=== PATIENT | female | born 1975 | race Caucasian/White ===

== ENCOUNTER 2016-10-11 10:00 | Day surgery (SDC) | payer OTHER ==
[~2016-10-11] VITALS: Ht 162.6 cm; Wt 121.6 kg
[~2016-10-11 10:00] MED LIST: HYDROCHLOROTHIA25 MG PO; METFORMIN HCL1000 M1 PO; SIMVASTATIN20 MG PO
--- NOTE | 2016-10-11 12:20 | NUR ---
10/11/16 1220 Klarissa Marc 1216-PATIENT ARRIVED TO PACU ON 8L MASK 100% ORAL AIRWAY IN PLACE. NONAROUSABLE. JULIA PAD TO VAGINA CDI. SR. RN ASSISTING TO MAINTAIN OPEN AIRWAY 1218-PATIENT MAINTAINING OWN AIRWAY 8L MASK O2 SAT 100%
[2016-10-11] MEDS ORDERED: MOTRIN IB200 MG PO (13:12)
[2016-10-11] MEDS ORDERED: NORCO 5-325 TA1 EACH PO (13:13)
--- NOTE | 2016-10-11 13:54 | NUR ---
PT TOLERATED SOUP AND APPLE SAUCE.
--- NOTE | 2016-10-11 14:09 | NUR ---
PT UP TO THE BATHROOM WITH PAUL ASST. TOLERATED WELL. VOID NOTED BUT MISSED THE HAT THAT WAS PLACED IN THE TOILET. NO DRAINAGE NOTED ON JULIA PAD. PT BACK TO BED AND IV DC'D. PT WAITING FOR TO RETURN.
--- NOTE | 2016-10-17 20:46 | OR ---
[facility] [address] [place], [place] [address] Signed DATE OF SERVICE: 10/11/2016 SURGEON: Micheline Yu MD PREOPERATIVE DIAGNOSES: Menorrhagia and endometrial polyp. POSTOPERATIVE DIAGNOSES: Menorrhagia and endometrial polyp, pending pathology. PROCEDURE: Hysteroscopy, D and C, resection of polyp. ANESTHESIA: General LMA. ESTIMATED BLOOD LOSS: Minimal. DRAINS: None. INDICATIONS AND FINDINGS: The patient is a 41-year-old female, 3, para 3, status post prior tubal ligation. She has been having worsening periods over the last 6 months. Her periods have been very heavy where she will need to change her protection every 1-2 hours for 6-7 days and in the last 6 months her periods have been lasting 12-18 days and she was needed to change her protection every 30-60 minutes. She has also been having significant cramping. She has been anemic on laboratory evaluation. She has had an EMB, which was anovulatory. Ultrasound revealed an endometrial polyp. She is now being admitted for evaluation. Exam under anesthesia revealed an apparently normal sized uterus. The patient is morbidly obese. The cavity sounded to 11 cm. The cavity appeared primarily atrophic except for a single large polyp. PROCEDURE: The patient was prepped and draped in the dorsal lithotomy position. The swan neck speculum was required in the posterior cul-de-sac secondary to her weight. The anterior cervix was visualized and grasped with a single-tooth tenaculum. The cavity was then sounded to 11 cm. The endocervical canal was then dilated to a #8 dilator. The MyoSure device was then placed. The cavity was evaluated and the polyp was seen. Following this, the MyoSure was removed and polyp forceps were introduced with removal of a small polyp. D and C was then done using a small curette, but no tissue was really found. Subsequent to this, the MyoSure device was reintroduced and the polyp was still seen. The MyoSure Lite was then used and the polyp excised completely. Evaluation of the remaining cavity showed no abnormalities. The procedure was then terminated. The instruments were removed and the tenaculum removed. There was no evidence of bleeding from the tenaculum site. Electronically Signed By: MICHELINE YU MD 10/17/16 2046 PATIENT NAME: AJITH ARGUETA OPERATIVE REPORT DATE OF : 71 PHYSICIAN: MICHELINE YU MD REPORT #: [id number] REPORT IS CONFIDENTIAL AND NOT TO BE RELEASED WITHOUT AUTHORIZATION [facility] [address] [place] [id number] Signed The weighted speculum was then removed. The patient was taken to the recovery room in good condition. Micheline Yu MD PJW/Evans /[id number] cc: Rosendo Rdz NP Electronically Signed By: MICHELINE YU MD 10/17/16 2046 PATIENT NAME: AJITH ARGUETA OPERATIVE REPORT DATE OF : 71 PHYSICIAN: MICHELINE YU MD REPORT #: [id number] REPORT IS CONFIDENTIAL AND NOT TO BE RELEASED WITHOUT AUTHORIZATION
== END 2016-10-11 14:30 | disposition home or self-care (01) ==
LOC: DS 10:00
PROVIDERS: Obstetrics & Gynecology
PROC: 0UDB8ZX Extraction of Endometrium, Via Natural or Artificial Opening Endoscopic, Diagnostic (ICD-10-PCS; principal; 2016-10-11 12:45)
DX: N84.0 Polyp of corpus uteri (principal); D50.0 Iron deficiency anemia secondary to blood loss (chronic); I10 Essential (primary) hypertension; E11.9 Type 2 diabetes mellitus without complications; E78.00 Pure hypercholesterolemia, unspecified; E66.01 Morbid (severe) obesity due to excess calories; Z98.890 Other specified postprocedural states; Z88.2 Allergy status to sulfonamides; Z68.41 Body mass index [BMI] 40.0-44.9, adult
CPT/HCPCS: 00952; J1100; J1885; J2250; J2405; J2704; J2765; J3010; J7120

== ENCOUNTER 2018-04-03 05:50 | Day surgery (SDC) | payer OTHER ==
[~2018-04-03] VITALS: Ht 162.6 cm; Wt 121.6 kg
[~2018-04-03 05:50] MED LIST changes: +GABAPENTIN100 MG PO; +IRON325 M1 PO; +MAGNESIUM100 MG PO; +MOTRIN IB200 MG PO; +NORCO 5-325 TA1 EACH PO; +VITAMIN B COMP1 EACH PO; +ZESTRIL40 MG PO; +ZINC CHELATED50 MG PO
[2018-04-03] MEDS ORDERED: ADVIL200 M1 PO (06:07)
[2018-04-03] MEDS ORDERED: VITAMIN C500 M1 PO (06:08)
[2018-04-03] MEDS ORDERED: PERCOCET 5-3251 EACH PO (14:44)
[2018-04-03] MEDS ORDERED: MOTRIN IB200 MG PO (14:44)
[2018-04-03] MEDS ORDERED: ZOFRAN8 MG PO (14:45)
[2018-04-17] MEDS ORDERED: VITAMIN D2000 UNIT PO (14:00)
--- NOTE | 2018-05-08 09:25 | OR ---
[facility] [address] [place], [place] [address] Signed DATE OF OPERATION: 04/03/2018 SURGEON: Micheline Yu MD GASTROENTEROLOGY PHYSICIAN: Shantal Shelton DO PREOPERATIVE DIAGNOSES: Menorrhagia, dysmenorrhea, morbid obesity. POSTOPERATIVE DIAGNOSES: Menorrhagia, dysmenorrhea, morbid obesity. PROCEDURES: Total laparoscopic hysterectomy, bilateral salpingectomy, and cystoscopy. ANESTHESIA: General ET. ESTIMATED BLOOD LOSS: 150 mL. DRAINS: Lemus catheter. INDICATIONS AND FINDINGS: The patient is a 42-year-old female, 3, para 3 status post prior tubal ligation, who has had recurrent menorrhagia and dysmenorrhea, now desires definitive treatment. She underwent hysteroscopy with resection of polyps approximately a vvhn-zof-n-half ago and did well for some time, but then had recurrent abnormal bleeding. She now desires definitive treatment. The patient is also morbidly obese and has undergone three prior sections as well as a tubal ligation. At the time of surgery, exam under anesthesia revealed a top-normal size uterus, but no adnexal masses. At the time of laparoscopy, the uterus appeared to be top-normal size and the ovaries were normal. The tubes had evidence of prior tubal ligation. There was not too much scarring in the pelvis from her prior surgeries. DESCRIPTION OF PROCEDURE: The patient was prepped and draped in the dorsal lithotomy position. The [place]-Neck speculum was required to visualize the cervix. The anterior lip of the cervix was then Electronically Signed By: MICHELINE YU MD 05/08/18 0925 PATIENT NAME: AJITH ARGUETA OPERATIVE REPORT DATE OF : 71 REPORT #: [id number] PHYSICIAN: MICHELINE YU MD PCP: BILLY SANCHEZ MD REPORT IS CONFIDENTIAL AND NOT TO BE RELEASED WITHOUT AUTHORIZATION [facility] [address] [place], [place] [address] Signed visualized and grasped with a single-tooth tenaculum. The uterus was sounded to 9 cm. The endocervical canal was then slightly dilated and a VCare cannula was placed and the balloon inflated at the fundus. The tenaculum and speculum removed. The cup was fitted over the cervix with some difficulty and a locking cap was fitted into place as well. Attention was then directed above. The infraumbilical area was injected with 0.5% Marcaine plain and an incision made with a knife. Each layer was then serially elevated and incised until the fascia was opened and identified. Stay sutures of 0 Vicryl were placed. Following this, the peritoneum was opened bluntly. The Ovidio cannula was then placed and the balloon inflated. It was tied into place and the scope was placed confirming proper positioning. CO2 was then introduced to inflate the abdomen. A secondary port was placed slightly below the umbilicus on the patient's left side. An attempt was made to transilluminate the abdominal wall, but this was unsuccessful. It was felt that this was fairly far laterally and it should be safe. This area was injected with the Marcaine, incision made with a knife and a 5 mm port placed under direct vision. A 3rd port was placed in the same area on the right side. Again, after injecting with the Marcaine, incision made with a knife and the Veress needle was placed followed by the expanding port. The pelvis was evaluated and there was no severe scarring within the pelvis and it was felt that the planned procedure was appropriate. The LigaSure [place] device was then used to remove the patient's left tube and this was brought out through the expanded port. Subsequently, the round ligament and utero-ovarian ligament were serially coagulated and divided. The anterior leaf of the peritoneum was then incised allowing for a partial bladder flap. An attempt was made to take down the peritoneum posteriorly, but this was difficult given her size. The uterine vessels were then skeletonized and coagulated multiple times and then divided. There was a fair amount of bleeding at this time as there were quite a few vessels in this area. Further dissection was done anteriorly. Then, attention was directed to the patient's right side. Again, the tube was serially coagulated and excised and brought out through the port. The utero-ovarian ligament and round ligament were then serially coagulated and divided. The anterior leaf of the peritoneum was then incised allowing for completion of the bladder flap. Dissection was done anteriorly allowing the bladder to come down off completely. The posterior peritoneum was taken down. The uterine vessels were skeletonized and coagulated multiple times and then divided. An attempt was made to do further dissection posteriorly, but this was quite difficult. Attention was redirected to the patient's left side and more dissection was done in the area of the uterine vessel areas, but it was quite difficult to further dissect posteriorly. The cup could be seen anteriorly. Another puncture site was made above the umbilicus on the right side to aid in further visualization. This area was visualized, injected with the Marcaine, incision made with a knife and a 5 mm port was placed under direct vision. The abdomen was copiously irrigated and inspected and it was felt at that point that removal of the specimen was appropriate. The Ovidio cannula was replaced with a bariatric cannula given the patient's size as well. The Sonicision device was used to remove the specimen. This was started anteriorly given the difficulty visualizing the Electronically Signed By: MICHELINE YU MD 05/08/18 0925 PATIENT NAME: AJITH ARGUETA OPERATIVE REPORT DATE OF : 71 REPORT #: [id number] PHYSICIAN: MICHELINE YU MD PCP: BILLY SANCHEZ MD REPORT IS CONFIDENTIAL AND NOT TO BE RELEASED WITHOUT AUTHORIZATION [facility] [address] [place], [place] [address] Signed cup posteriorly. This was brought from the right anterior around the right side and over the right uterosacral ligament. Following this, it was started again anteriorly and wrapped around the left side and then across the posterior aspect of the cervix as well. Following this, the specimen was and it could be removed vaginally. Following this, a lap tape was placed in a glove and this was placed in the vagina to allow for the pneumoperitoneum to reaccumulate. Attention was redirected above and the abdomen was copiously irrigated and inspected and the cuff actually appeared to be hemostatic. Preparations were then made for closure with the Endo Stitch. This was started at the patient's right uterosacral ligament, brought through the vaginal mucosa posteriorly and then through the vaginal mucosa and the cuff anteriorly. This was run from the patient's right to the left and then back to the center. The abdomen was again irrigated and inspected and the pressure turned down and there was no evidence of any ongoing bleeding. Evicel was dripped over the cuff and the pelvic sidewalls to aid further in hemostasis. Following this, preparations were made for closure. The instruments were removed from the abdomen after allowing as much CO2 as possible to escape. There was a fair amount of irrigation fluid that also escaped during this time. The fascial incision of the umbilicus was reidentified. At that point, there was also noted to be a fair amount of bleeding in the muscle area. Because of this, the umbilical incision was extended more laterally on each side, allowing for evaluation of the muscle. There was some bleeding on the patient's right side in the muscle layer, but there was also some bleeding near the patient's left side near the fascia and [id number] sutures of 0 Vicryl placed on each area with good hemostasis noted. Following this, little Louie powder was sprinkled in this area to aid in hemostasis. The fascia was then closed with a running suture of 0 Vicryl. The stay sutures were tied across as well. Deep sutures were required given the patient's depth of subcu. These were done with interrupted sutures of the 2-0 Vicryl. The skin incisions were closed with subcuticular sutures of 3-0 Vicryl Rapide. Following this, attention was directed below and the vaginal packing was removed. The Lemus catheter was removed and the cystoscope placed. The patient had received IV fluorescein. The bladder was evaluated. There was no evidence of any injury. Both of the ureteral orifices were identified and clear urine was seen to freely egress from both of these. Following this, the bladder was drained and the cystoscope removed and the Lemus catheter replaced. All sponge and needle counts were correct. She tolerated the procedure well and was taken to the recovery room in good condition. MD MICHAEL Wilson/VICENTEL Electronically Signed By: MICHELINE YU MD 05/08/18 0925 PATIENT NAME: AJITH ARGUETA OPERATIVE REPORT DATE OF : 71 REPORT #: [id number] PHYSICIAN: MICHELINE YU MD PCP: BILLY SANCHEZ MD REPORT IS CONFIDENTIAL AND NOT TO BE RELEASED WITHOUT AUTHORIZATION [address] [place] [address] Signed /[id number] cc: Shantal Shelton DO Copies: SHANTAL SHELTON DO ~ Electronically Signed By: MICHELINE YU MD 05/08/18 0925 PATIENT NAME: AJITH ARGUETA OPERATIVE REPORT DATE OF : 71 REPORT #: [id number] PHYSICIAN: MICHELINE YU MD PCP: BILLY SANCHEZ MD REPORT IS CONFIDENTIAL AND NOT TO BE RELEASED WITHOUT AUTHORIZATION
[2018-05-08] MEDS ORDERED: PRAVACHOL40 MG PO (13:32)
== END 2018-04-04 11:20 | disposition home or self-care (01) ==
LOC: DS 05:50 → MS 17:45 → DS 17:45 → MS 17:46 → DS 04-04 11:20 → MS 04-04 11:20
PROVIDERS: Obstetrics & Gynecology
PROC: 0UT94ZZ Resection of Uterus, Percutaneous Endoscopic Approach (ICD-10-PCS; principal; 2018-04-03 06:45)
PROC: 0UT74ZZ Resection of Bilateral Fallopian Tubes, Percutaneous Endoscopic Approach (ICD-10-PCS; 2018-04-03 06:45)
DX: N92.0 Excessive and frequent menstruation with regular cycle (principal); N94.5 Secondary dysmenorrhea; E66.01 Morbid (severe) obesity due to excess calories; D25.1 Intramural leiomyoma of uterus; N72 Inflammatory disease of cervix uteri; N83.8 Other noninflammatory disorders of ovary, fallopian tube and broad ligament; D50.0 Iron deficiency anemia secondary to blood loss (chronic); I10 Essential (primary) hypertension; E11.9 Type 2 diabetes mellitus without complications; Z88.5 Allergy status to narcotic agent; Z88.2 Allergy status to sulfonamides; Z68.41 Body mass index [BMI] 40.0-44.9, adult; E78.00 Pure hypercholesterolemia, unspecified; Z79.84 Long term (current) use of oral hypoglycemic drugs; Z79.899 Other long term (current) drug therapy
CPT/HCPCS: 00840; J0330; J0694; J1100; J1644; J1815; J1885; J2250; J2270; J2405; J2704; J2765; J3010; J7120

== ENCOUNTER 2018-04-24 10:57 | Day surgery (SDC) | payer OTHER ==
[~2018-04-24] VITALS: Ht 162.6 cm; Wt 120.6 kg
[~2018-04-24 10:57] MED LIST changes: +ADVIL200 M1 PO; +PERCOCET 5-3251 EACH PO; +VITAMIN C500 M1 PO; +VITAMIN D2000 UNIT PO; +ZOFRAN8 MG PO
[2018-04-24] MEDS ORDERED: PRAVACHOL40 MG PO (11:18)
--- NOTE | 2018-04-24 12:31 | NUR ---
04/24/18 Corey1 Klarissa Marc 1222-PATIENT ARRIVED TO PACU ON 3L NC AWAKE DENIES PAIN OR NAUSEA. PLACED ON 2L NC RR EVEN. LAYING LEFT LATERAL. DRESSING TO BACK CDI. GLUCOSE CHECKED 126
[2018-05-08] MEDS ORDERED: PRAVACHOL40 MG PO (13:32)
== END 2018-04-24 13:05 | disposition home or self-care (01) ==
LOC: OPS 10:57 → DS 12:00 → OPS 12:00
PROVIDERS: Specialist
PROC: 07JT3ZZ Inspection of Bone Marrow, Percutaneous Approach (ICD-10-PCS; principal; 2018-04-24 12:00)
DX: D47.2 Monoclonal gammopathy (principal); G62.9 Polyneuropathy, unspecified; D50.9 Iron deficiency anemia, unspecified; D47.3 Essential (hemorrhagic) thrombocythemia; E11.9 Type 2 diabetes mellitus without complications; I10 Essential (primary) hypertension; Z79.899 Other long term (current) drug therapy; Z88.2 Allergy status to sulfonamides
CPT/HCPCS: 36415; 85025; 99152; 99153; J2250; J3010; J7120

== ENCOUNTER 2021-06-28 15:42 | Emergency (ER) | payer OTHER ==
[~2021-06-28] VITALS: Ht 162.6 cm; Wt 121.1 kg
[~2021-06-28 15:42] MED LIST changes: +PRAVACHOL40 MG PO
[2021-06-28] MEDS ORDERED: NAPROSYN500 MG PO (18:55)
--- NOTE | 2021-06-28 22:23 | EKG ---
[facility] [address] [facility] [place], [place] [address] Signed Normal sinus rhythm Low voltage QRS Borderline ECG When compared with ECG of 09-OCT-2016 16:08, No significant change was found Confirmed by FILIBERTO PINEDA MD ([id number]) on 06/28/2021 10:23:30 PM Electronically Signed By: FILIBERTO PINEDA MD 06/28/212222 PATIENT NAME: AJITH ARGUETA PAULY Electrocardiogram DATE OF : 71 PHYSICIAN: FILIBERTO PINEDA MD REPORT #: [id number] REPORT IS CONFIDENTIAL AND NOT TO BE RELEASED WITHOUT AUTHORIZATION
== END 2021-06-28 20:50 | disposition home or self-care (01) ==
LOC: ED 15:42
DX: R07.89 Other chest pain (principal); E11.9 Type 2 diabetes mellitus without complications; I10 Essential (primary) hypertension; Z88.2 Allergy status to sulfonamides; Z88.8 Allergy status to other drugs, medicaments and biological substances; Z79.84 Long term (current) use of oral hypoglycemic drugs; Z79.899 Other long term (current) drug therapy
CPT/HCPCS: 36415; 71260; 80053; 84484; 85025; 85379; 93005; 93010; 99285-25; J1885; Q9967